=== PATIENT | male | born 1980 ===

== ENCOUNTER → 2023-11-26 14:16 | Outpatient (CLI) | payer BC, SELFPAY ==
--- NOTE | ~2023-11-26 | MR_ITS ---
MRI of the right ankle Clinical history: Sprain Technique: Coronal proton-density and proton-density fat-sat images, axial proton-density and proton- density fat-sat images, and sagittal proton-density and proton-density fat-sat images were acquired. Findings: There is a comminuted fracture of the lateral aspect of the talus, with intra-articular ext ension at the posterior subtalar facet. One of the fracture fragments involves the insertion of the a nterior talofibular ligament. Fibers of the ligament themselves are intact otherwise. Posterior talof ibular ligament and calcaneofibular ligament are intact. Deltoid ligament is intact. There is extensive marrow edema throughout the talus, the navicular, and most of the upper calcaneus about the subtalar region. There is also extensive marrow edema of the cuboid. No other definite frac ture identified. There is mild marrow edema at the proximal poles of the middle and lateral cuneiform s. No osteochondral lesion of the talar dome identified. Medial flexor tendons, peroneal tendons, anterior extensor tendons, and Achilles tendon are intact. P lantar fascia intact. There is marked, diffuse soft tissue edema/swelling involving the subcutaneous soft tissues throughou t the ankle and distal calf. Moderate to large tibiotalar joint effusion present. Impression: Acute to subacute, comminuted, mildly displaced fracture involving the lateral aspect of the talus, w ith intra-articular extension at the posterior subtalar facet. Fracture entails a probable functional equivalent of a tear of the anterior talofibular ligament, with the anterior talofibular ligament in serting on one of the fracture fragments, though the fibers of the ligament themselves are intact. Extensive bone contusions involving the talus, calcaneus, navicular, cuboid, and proximal poles of th e middle and lateral cuneiforms. No other definite fracture seen. Extensive subcutaneous soft tissue edema throughout the ankle. Reviewed, dictated and finalized at location [facility]. [facility] [employer] Impression: Acute to subacute, comminuted, mildly displaced fracture involving the lateral aspect of the talus, with intra-articular extension at the posterior subtalar f acet. Fracture entails a probable functional equivalent of a tear of the anteri or talofibular ligament, with the anterior talofibular ligament inserting on on e of the fracture fragments, though the fibers of the ligament themselves are i ntact. Extensive bone contusions involving the talus, calcaneus, navicular, cuboid, an d proximal poles of the middle and lateral cuneiforms. No other definite fractu re seen. Extensive subcutaneous soft tissue edema throughout the ankle.
== END ==
PROVIDERS: PCP Podiatrist Foot & Ankle Surgery; Visit Provider Podiatrist Foot & Ankle Surgery
DX: S93.491A Sprain of other ligament of right ankle, initial encounter (principal); S92.141A Displaced dome fracture of right talus, initial encounter for closed fracture; S90.01XA Contusion of right ankle, initial encounter; R60.0 Localized edema
CPT/HCPCS: 73721

== ENCOUNTER 2024-01-05 11:28 | Outpatient (CLI) | payer BC, SELFPAY ==
--- NOTE | ~2024-01-05 | XR_ITS ---
Right foot Technique: AP, oblique, and lateral views were obtained. Clinical History: Cuboid fracture Findings: Bony fragment laterally prior related to presumed diagnosed lateral talar fracture. No defi nite cuboid fracture identified. Joint spaces are preserved without erosive or degenerative change. S oft tissues are unremarkable. Impression: Bone fragment laterally is probably related to lateral talar fracture seen on prior ankle MR. No definite cuboid fracture seen on this exam. Reviewed, dictated and finalized at location [facility]. [facility] [employer] Impression: Bone fragment laterally is probably related to lateral talar fracture seen on p rior ankle MR. No definite cuboid fracture seen on this exam.
== END 2024-01-05 11:29 | disposition home or self-care (01) ==
LOC: ANHIMG 11:30
PROVIDERS: PCP Podiatrist Foot & Ankle Surgery; Visit Provider Podiatrist Foot & Ankle Surgery
DX: S92.211A Displaced fracture of cuboid bone of right foot, initial encounter for closed fracture (principal); X58.XXXA Exposure to other specified factors, initial encounter
CPT/HCPCS: 73630